=== PATIENT | female | born 1995 | race Caucasian/White ===

== ENCOUNTER 2016-10-28 20:22 | Emergency (ER) | payer OTHER ==
[2016-10-28] MEDS ORDERED: predniSONE 20 MG TAB PO ONE (20:29)
[2016-10-28] MEDS ORDERED: FAMOTIDINE 20 MG/2 ML SDV IVP ONE (20:29)
[2016-10-28 22:15] VITALS: RESP 20
--- NOTE | 2016-10-28 22:27 | EDPHY ---
H & P Stated Complaint: "im having another allergiv reaction" to unknown Time Seen by Provider: 10/28/16 20:26 HPI/ROS: Chief complaint: Allergic reaction History of present illness: This is a 21-year-old female who presents to the emergency department reporting she is having an allergic reaction. Patient reports a history of allergic reactions, she states they are severe and ultimately will result in anaphylaxis. She states she has been evaluated at length at home in [place] and is unclear why she has these allergic reactions. 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 She reported the onset of the current symptoms this evening. She feels like her throat is tightening up and she is having a hard time breathing. She denies other associated signs or symptoms including no fever, no cough, no rash. She does carry epinephrine pens with her but did not use of this evening. Review of systems: A 10 point review of systems was obtained and other than described above was negative - Personal History LMP (Females 10-55): 22-28 Days Ago Current Tetanus/Diphtheria Vaccine: Unsure Current Tetanus Diphtheria and Acellular Pertussis (TDAP): Unsure Tetanus Vaccine Date: < 10 years - Medical/Surgical History Hx Asthma: No Hx Chronic Respiratory Disease: No Hx Diabetes: No Hx Cardiac Disease: No Hx Renal Disease: No Hx Cirrhosis: No Hx Alcoholism: No Hx HIV/AIDS: No Hx Splenectomy or Spleen Trauma: No Other PMH: PMH: idiopathic anaphylaxis, asthma. PSH: appy 2016 - Social History Smoking Status: Current some day smoker - Physical Exam Exam: General Appearance: Alert, nontoxic. Eyes: Pupils equal and round no injection. ENT: No angioedema, no stridor. Respiratory: Chest is non tender, lungs are clear to auscultation. Cardiac: regular rate and rhythm Gastrointestinal: Abdomen is soft and non tender, no masses, bowel sounds normal. Musculoskeletal: Neck is supple and non tender. Extremities have full range of motion and are non tender. Skin: No rashes or lesions. Constitutional: Initial Vital Signs Temperature (C) 36.5 C 10/28/16 20:49 Heart Rate 81 10/28/16 20:49 Respiratory Rate 16 10/28/16 20:49 Blood Pressure 148/76 H 10/28/16 20:49 O2 Sat (%) 95 10/28/16 20:49 O2 Delivery Mode Room Air Allergies/Adverse Reactions: No Known Allergies Allergy (Verified 10/28/16 20:30) Home Medications: Medication Instructions Recorded predniSONE 40 mg PO DAILY 4 Days 10/28/16 Medical Decision Making ED Course/Re-evaluation: Patient seen under the supervision of my secondary supervising physician Dr. Mario Galan. Patient presents to the emergency department concerned she is having a severe allergic reaction. On presentation she is nontoxic. Afebrile and vital signs are stable. IV is started and she is IV hydrated, given Benadryl 25 mg as she did not want 50 mg and Pepcid. She is given oral prednisone. She is observed in the emergency department for 2 hours with complete resolution of symptoms. She is asking to be discharged. She will be discharged on prednisone and asked to continue Benadryl and Pepcid. She does currently have epinephrine pens and we have gone over their use again. She is asked to follow up with a primary care doctor for continued evaluation and care and referral information is provided. Strict return precautions are given. Differential Diagnosis: Included but not limited to allergic reaction, anaphylaxis, anxiety, contact dermatitis - Data Points Medications Given: Discontinued Medications Diphenhydramine HCl (Benadryl Injection) 25 mg IVP EDNOW ONE Stop: 10/28/16 20:30 Last Admin: 10/28/16 20:48 Dose: 25 mg Famotidine (Pepcid) 20 mg IVP EDNOW ONE Stop: 10/28/16 20:30 Last Admin: 10/28/16 20:48 Dose: 20 mg Prednisone (Prednisone) 60 mg PO EDNOW ONE Stop: 10/28/16 20:30 Last Admin: 10/28/16 20:49 Dose: 60 mg Departure - Departure Disposition: Home, Routine, Self-Care Clinical Impression: Anaphylactic reaction Qualifiers: Encounter type: initial encounter Qualified Code(s): T78.2XXA - Anaphylactic shock, unspecified, initial encounter Condition: Good Instructions: Anaphylaxis (ED) Additional Instructions: Follow-up with a primary care doctor for recheck Take prednisone daily for the next 4 days Use [id number] Benadryl 25 mg every 6 hours for the next 2-3 days Use [id number] Pepcid 20 mg twice a day for the next 2-3 days If symptoms worsen or new symptoms develop seek immediate emergency care including calling 911, use your epinephrine pens Referrals: NONE *PRIMARY CARE P,. [Primary Care Provider] - As per Instructions Kristin Hyde MD [Medical Doctor] - As per Instructions Prescriptions: predniSONE 40 mg PO DAILY 4 Days
[2016-10-28 22:40] VITALS: BP 119/86; PULSE 83; TEMP 98.1; O2SAT 94
== END 2016-10-28 22:40 | disposition home or self-care (01) ==
DX: T78.2XXA Anaphylactic shock, unspecified, initial encounter (principal); J45.909 Unspecified asthma, uncomplicated; F17.200 Nicotine dependence, unspecified, uncomplicated
CPT/HCPCS: 96374; J1200